=== PATIENT | male | born 1980 | race African-American/Black ===

== ENCOUNTER 2019-01-19 18:07 | Inpatient (IN) | payer MEDICAID ==
[~2019-01-19] VITALS: Ht 172.7 cm; Wt 103.9 kg
[2019-01-19] MEDS ORDERED: FUROSEMIDE20 M1 ORAL (18:16)
[2019-01-19 18:22] VITALS: BP 233/141
--- NOTE | 2019-01-19 18:24 | NUR ---
ED Nurse Note:pt. came with hypertension and SOB from fluid overload, he ran out of lasix, bilateral edema, bp 133/141, ambulatory, A/Ox4, placed on crdiac monitor
[2019-01-19] MEDS ORDERED: Labetalol 5mg/ml 20ml vial IV ONE (18:30)
--- NOTE | 2019-01-19 18:31 | Emergency Room Report ---
History of Present Illness General Chief Complaint: Upper Respiratory Illness Source: Patient Present Illness HPI 38-year-old male history of cardiomyopathy reduced ejection fraction, history of presents with dyspnea, shortness of breath chest pain, worsened while lying flat, alleviated while sitting upright, patient states that he ran out of his Lasix 4 days ago. Severity is moderate, constant, patient denies any fevers chills patient presents for evaluation. Allergies: Coded Allergies: PENICILLINS (Verified Allergy, Severe, Hives, 01/19/19) VERAPAMIL (Verified Allergy, Severe, Hives, 01/19/19) Patient History Past Medical History: see triage record Reviewed Nursing Documentation: PMH: Agreed; PSxH: Agreed Nursing Documentation-PMH Past Medical History: No History, Except For Hx Cardiac Problems: Yes - CHF Hx Hypertension: Yes Hx Diabetes: Yes - CKD Review of Systems All Other Systems: negative except mentioned in HPI Physical Exam Vital Signs Date Time Temp Pulse Resp B/P (MAP) Pulse Ox O2 Delivery O2 Flow Rate FiO2 01/19/19 18:09 98.4 109 20 230/162 (184) 97 Room Air Sp02 EP Interpretation: reviewed, normal General Appearance: well appearing, no apparent distress, alert Head: normocephalic, atraumatic Eyes: bilateral eye PERRL, bilateral eye EOMI ENT: uvula midline, moist mucus membranes Neck: supple, thyroid normal, supple/symm/no masses Respiratory: no respiratory distress, no retraction, no accessory muscle use, crackles Cardiovascular #1: normal peripheral pulses, no gallop, no murmur, tachycardia , edema - 3+ pitting edema Gastrointestinal: non tender, soft, no guarding, no rebound Musculoskeletal: normal inspection Neurologic: alert, oriented x3 Psychiatric: mood/affect normal Skin: no rash, warm/dry Procedures Critical Care Time Critical Care Time Given the critical condition in which the patient arrived, the patient was immediately assessed by myself and the nurse, and cardiac monitoring initiated due to the potential for rapid decompensation of the patient's clinical condition. During the course of the patient's stay, I spent a considerable amount of time at the bedside performing serial re-evaluations of the patient's hemodynamic and clinical status because of the recognized potential threat to life or limb in this condition. I then had a chance to review not only all of the available current laboratory and radiographic studies obtained today, but I also reviewed old records available to me at the time. Additionally, any ancillary information available including sound effects supervisor records were reviewed. Sequential vital signs were obtained. Critical Care time of 31 minutes was performed exclusive of billable procedures. Medical Decision Making Diagnostic Impression: Primary Impression: CHF exacerbation Qualified Codes: I50.9 - Heart failure, unspecified Additional Impression: NSTEMI (non-ST elevated myocardial infarction) ER Course 38-year-old male presents with acute shortness of breath, patient ran out of Lasix, patient shows signs of fluid overload Patient also with blood pressure greater than 220, patient given hydralazine, labetalol, and 40 mg of Lasix IV, patient given aspirin and Lovenox Patient's blood pressure significantly improved to 180s systolic Chest x-ray shows pulmonary edema Will admit patient to telemetry for continued monitoring and diuresis Patient admitted to Dr. Stokes Laboratory Tests Test 01/19/19 18:30 White Blood Count 6.5 K/UL (4.8-10.8) Red Blood Count 4.91 M/UL (4.70-6.10) Hemoglobin 13.5 G/DL (14.2-18.0) L Hematocrit 41.0 % (42.0-52.0) L Mean Corpuscular Volume 83 FL (80-99) Mean Corpuscular Hemoglobin 27.5 PG (27.0-31.0) Mean Corpuscular Hemoglobin Concent 33.0 G/DL (32.0-36.0) Red Cell Distribution Width 12.7 % (11.6-14.8) Platelet Count 227 K/UL (150-450) Mean Platelet Volume 9.1 FL (6.5-10.1) Neutrophils (%) (Auto) 65.9 % (45.0-75.0) Lymphocytes (%) (Auto) 22.6 % (20.0-45.0) Monocytes (%) (Auto) 8.1 % (1.0-10.0) Eosinophils (%) (Auto) 2.4 % (0.0-3.0) Basophils (%) (Auto) 1.1 % (0.0-2.0) Prothrombin Time 10.3 SEC (9.30-11.50) Prothrombin Time INR 1.0 (0.9-1.1) PTT 30 SEC (23-33) Sodium Level 139 MMOL/L (136-145) Potassium Level 4.0 MMOL/L (3.5-5.1) Chloride Level 107 MMOL/L (98-107) Carbon Dioxide Level 26 MMOL/L (21-32) Anion Gap 6 mmol/L (5-15) Blood Urea Nitrogen 16 mg/dL (7-18) Creatinine 2.2 MG/DL (0.55-1.30) H Estimate Glomerular Filtration Rate 33.7 mL/min (>60) Glucose Level 166 MG/DL (74-106) H Calcium Level 8.6 MG/DL (8.5-10.1) Total Bilirubin 0.5 MG/DL (0.2-1.0) Aspartate Amino Transferase (AST) 34 U/L (15-37) Alanine Aminotransferase (ALT) 41 U/L (12-78) Alkaline Phosphatase 116 U/L (46-116) Total Creatine Kinase 123 U/L (26-308) Creatine Kinase MB 2.2 NG/ML (0.0-3.6) Creatine Kinase MB Relative Index 1.7 Troponin I 0.086 ng/mL (0.000-0.056) Pro-B-Type Natriuretic Peptide 7750 pg/mL (0-125) H Total Protein 6.6 G/DL (6.4-8.2) Albumin 2.4 G/DL (3.4-5.0) L Globulin 4.2 g/dL Albumin/Globulin Ratio 0.6 (1.0-2.7) L Lipase 863 U/L (73-393) H EKG Diagnostic Results EKG Time: 18:29 EP Interpretation: Sinus tachycardia, rate 102, QTc 471 left axis deviation no acute st elev ST Segments: other - Flipped T waves in 1 V5 V6, aVL Rhythm Strip Diag. Results Rhythm Strip Time: 19:10 EP Interpretation: yes Rate: 96 Rhythm: NSR, no PVC's, no ectopy Chest X-Ray Diagnostic Results Chest X-Ray Diagnostic Results : Chest X-Ray Ordered: Yes # of Views/Limited/Complete: 1 View Indication: Chest Pain EP Interpretation: Yes Interpretation: other - pulmonary congestion seen Impression: Other - pulmonary congestion seen Electronically Signed by: Josse Louis MD Last Vital Signs Date Time Temp Pulse Resp B/P (MAP) Pulse Ox O2 Delivery O2 Flow Rate FiO2 01/19/19 18:22 105 20 Room Air 01/19/19 18:22 98.4 233/141 97 Disposition: ADMITTED INPATIENT Condition: Stable Josse Louis MD Jan 19, 2019 18:31
[2019-01-19 18:44] LABS: BASOPHILS % (AUTO) 1.1 % (0.0-2.0); EOSINOPHILS % (AUTO) 2.4 % (0.0-3.0); HEMOGLOBIN 13.5 G/DL (14.2-18.0); LYMPHOCYTES % (AUTO) 22.6 % (20.0-45.0); MEAN CORPUSCULAR VOLUME 83 FL (80-99); MONOCYTES % (AUTO) 8.1 % (1.0-10.0); NEUTROPHILS % (AUTO) 65.9 % (45.0-75.0); PLATELET COUNT 227 K/UL (150-450); RED BLOOD COUNT 4.91 M/UL (4.70-6.10); RED CELL DISTRIBUTION WIDTH 12.7 % (11.6-14.8); WHITE BLOOD COUNT 6.5 K/UL (4.8-10.8)
[2019-01-19 18:57] LABS: ANION GAP 6 mmol/L (5-15); BLOOD UREA NITROGEN 16 mg/dL (7-18); CALCIUM 8.6 MG/DL (8.5-10.1); CARBON DIOXIDE 26 MMOL/L (21-32); CHLORIDE 107 MMOL/L (98-107); CREATININE 2.2 MG/DL (0.55-1.30); SODIUM 139 MMOL/L (136-145)
[2019-01-19 19:11] LABS: ALANINE AMINOTRANSFERASE 41 U/L (12-78); ALBUMIN 2.4 G/DL (3.4-5.0); ALBUMIN/GLOBULIN RATIO 0.6 (1.0-2.7); ALKALINE PHOSPHATASE 116 U/L (46-116); ASPARTATE AMINO TRANSFERASE 34 U/L (15-37); BILIRUBIN,TOTAL 0.5 MG/DL (0.2-1.0); CKMB 2.2 NG/ML (0.0-3.6); CREATINE KINASE 123 U/L (26-308)
[2019-01-19] MEDS ORDERED: SPIRONOLACTONE25 MG ORAL (19:16)
[2019-01-19] MEDS ORDERED: ASPIRIN81 MG ORAL (19:16)
[2019-01-19] MEDS ORDERED: ATORVASTATIN CA40 MG ORAL (19:16)
[2019-01-19] MEDS ORDERED: LABETALOL HCL200 MG ORAL (19:16)
[2019-01-19] MEDS ORDERED: LOSARTAN POTASS50 MG ORAL (19:16)
[2019-01-19] MEDS ORDERED: ADALAT20 MG ORAL (19:16)
--- NOTE | 2019-01-19 19:17 | NUR ---
ED Nurse Note:blood sent to labs and IV meds given to pt
[2019-01-19 19:22] VITALS: BP 182/115
--- NOTE | 2019-01-19 19:22 | NUR ---
ED Nurse Note: REceived report from Naomi CARRANZA. Patient alert and oriented, verbally reponsive. Breathing even and unlabored. BP is high MD made aware. Family member at bedside.
[2019-01-19] MEDS ORDERED: Enoxaparin 100mg Inj SUBQ ONE (19:30)
[2019-01-19] MEDS ORDERED: cloNIDine 0.2mg Tab ORAL PRN (20:00)
[2019-01-19] MEDS ORDERED: Zolpidem 5mg tab ORAL PRN (20:00)
[2019-01-19] MEDS ORDERED: Acetaminophen 650 MG SUPP RECTAL PRN (20:00)
[2019-01-19] MEDS ORDERED: Nitroglycerin Subl 0.4mg tab SL PRN (20:00)
[2019-01-19] MEDS ORDERED: Miralax 17gm pkt ORAL PRN (20:00)
--- NOTE | 2019-01-19 20:40 | NUR ---
TRANSFER TO FLOOR: Patient transferred to Tele unit as ordered. Report given to Natalie CARRANZA. alert and oriented, verbally reponsive. Bretahing even and unlabored. BP is high 185/145 MD aware. With IV line on right AC 20g patent and intact. Belongings list done. Belongings taken by the patient. S/O made aware of the transfer.
--- NOTE | 2019-01-19 20:40 | NUR ---
ED Nurse Note: Report given to Junior CARRANZA from Tele.
[2019-01-19 20:41] VITALS: BP 183/145
[2019-01-19 20:50] VITALS: BP 199/127
--- NOTE | 2019-01-19 21:00 | NUR ---
TRANSFER TO FLOOR: Patient transferred to Tele unit as ordered. Report given to Emmanuelle CARRANZA. Alert and oriented, verbally responsive. Breathing even and unlabored. afebrile. Patient is able to ambulate. With IV on left forearm 22g patent and intact. VSS. Medication reconcillation done. Belongings list done. Belongings was given to the patient.
--- NOTE | 2019-01-19 21:11 | NUR ---
NURSE NOTES: Received report from DILLON Jonas. Patient was transferred to Telemetry unit from ER via gurney without incident. No signs of acute distress noted; denies pain at this time. AOX4; able to make needs known. Ambulates independently. Checked IV site; patent and flushed. No erythema, bleeding, or infiltration noted. Patient put on Tele box; sinus rhythm on the monitor. Belongings list checked with patient and transferring RN. $305 noted to be among belongings; will notify nursing supervisor testing to put money in safe per patient's request. Skin assessment performed; no open wounds noted. Skin intact. Bed at lowest position, brakes on, siderails up x2. Call light within reach. Will continue to monitor.
[2019-01-19] MEDS: Carvedilol 6.25mg Tab ORAL SCH (21:35)
[2019-01-19] MEDS: Heparin 5000 units/ml inj SUBQ SCH (21:35)
[2019-01-19] MEDS: Labetalol 200mg tab ORAL SCH (21:36)
[2019-01-19] MEDS: Atorvastatin 80mg tab ORAL SCH (21:37)
[2019-01-19] MEDS: NovoLOG Insulin Flexpen SUBQ SCH (22:15)
[2019-01-20] VITALS: BP 136/76
[2019-01-20] MEDS: HydrALAZINE 50mg tab ORAL SCH ×4 (00:11→17:58)
--- NOTE | 2019-01-20 03:37 | NUR ---
NURSE NOTES: Patient is asleep in semi-mitchell's position. No signs of distress or pain noted at this time. Will continue with plan of care.
[2019-01-20 04:00] VITALS: BP 156/96
[2019-01-20] MEDS: NovoLOG Insulin Flexpen SUBQ SCH ×4 (05:43→21:25)
--- NOTE | 2019-01-20 07:18 | NUR ---
HAND-OFF: Report given to DILLON Gill. Patient asleep, resting comfortably in semi-mitchell's position. Patient is in stable condition.
--- NOTE | 2019-01-20 07:20 | NUR ---
NURSE NOTES: Received bedside report from Natalie CARRANZA. Pt. up sitting at the edge of the bed. A/O x 4. No sign of distress. Denies pain at present. IV at left AC #20g. in placed SL. Bed in low position, locked. Call light within reach. Will cont. to monitor.
[2019-01-20 07:25] LABS: BASOPHILS % (AUTO) 0.7 % (0.0-2.0); EOSINOPHILS % (AUTO) 3.3 % (0.0-3.0); HEMATOCRIT 42.1 % (42.0-52.0); LYMPHOCYTES % (AUTO) 20.5 % (20.0-45.0); MEAN CORPUSCULAR VOLUME 81 FL (80-99); MONOCYTES % (AUTO) 6.3 % (1.0-10.0); NEUTROPHILS % (AUTO) 69.3 % (45.0-75.0); PLATELET COUNT 242 K/UL (150-450); RED BLOOD COUNT 5.21 M/UL (4.70-6.10); RED CELL DISTRIBUTION WIDTH 13.1 % (11.6-14.8); WHITE BLOOD COUNT 7.1 K/UL (4.8-10.8)
[2019-01-20 08:00] VITALS: BP 142/90
[2019-01-20 08:55] LABS: CREATINE KINASE 101 U/L (26-308)
[2019-01-20] MEDS: Aspirin Baby 81mg ORAL SCH (08:57)
[2019-01-20 08:58] LABS: ALANINE AMINOTRANSFERASE 38 U/L (12-78); ALBUMIN 2.4 G/DL (3.4-5.0); ALBUMIN/GLOBULIN RATIO 0.6 (1.0-2.7); ALKALINE PHOSPHATASE 104 U/L (46-116); ANION GAP 8 mmol/L (5-15); ASPARTATE AMINO TRANSFERASE 23 U/L (15-37); BILIRUBIN,TOTAL 0.5 MG/DL (0.2-1.0); BLOOD UREA NITROGEN 16 mg/dL (7-18); CARBON DIOXIDE 26 MMOL/L (21-32); CHLORIDE 104 MMOL/L (98-107); CHOLESTEROL 268 MG/DL (< 200); CKMB 2.3 NG/ML (0.0-3.6); CREATININE 2.1 MG/DL (0.55-1.30); HDL CHOLESTEROL 49 MG/DL (40-60); POTASSIUM 3.2 MMOL/L (3.5-5.1); SODIUM 138 MMOL/L (136-145); TRIGLYCERIDES 124 MG/DL (30-150)
[2019-01-20] MEDS: Labetalol 200mg tab ORAL SCH ×2 (08:58→21:22)
[2019-01-20] MEDS: Losartan 50mg tab ORAL SCH (08:58)
[2019-01-20] MEDS: Carvedilol 6.25mg Tab ORAL SCH ×2 (08:59→21:20)
[2019-01-20] MEDS: Spironolactone 25mg tab ORAL SCH (08:59)
[2019-01-20] MEDS: Heparin 5000 units/ml inj SUBQ SCH ×2 (09:00→21:26)
[2019-01-20 09:51] LABS: CALCIUM 8.7 MG/DL (8.5-10.1)
--- NOTE | 2019-01-20 10:59 | Diagnostic Imaging Report ---
Indication: Dyspnea Comparison: None A single view chest radiograph was obtained. Findings: The left costophrenic angle is slightly obscured and may be blunted. The cardiac mediastinal silhouette is normal. Pulmonary vascularity is within normal limits. Bones are unremarkable. IMPRESSION: Small left pleural effusion may be present. Negative exam otherwise.
[2019-01-20 12:00] VITALS: BP 121/81
[2019-01-20 16:00] VITALS: BP 124/76
--- NOTE | 2019-01-20 16:23 | NUR ---
CASE MANAGEMENT:REVIEW 38 YR OLD MALE PRESENTED TO ER CC: SOB, CHEST PRESSURE AND HEADACHE SI: CHF EXACERBATION. NSTEMI 98.4 109 20 230/162 97% ON RA CR+2.2 TROPONIN(+) 0.086 BNP+7750 IS: IV LASIX ASA PO IV LABETALOL IV HYDRALAZINE LOVENOX SQ : TO TELEMETRY IS: COZAAR PO QD ASA PO COREG PO Q12 IV LASIX Q8HRS PROCARDIA XL PO QD INTERQUAL CRITERIA MET
--- NOTE | 2019-01-20 16:35 | NUR ---
*-* INSURANCE *-* ALL CLINICALS AND REVIEWS HAVE BEEN FAXED TO: Tom [facility] No tracking # or adult protective caseworker assigned yet #[phone]
[2019-01-20] MEDS: Nateglinide 60mg tab ORAL SCH (17:57)
--- NOTE | 2019-01-20 18:30 | Cardiology Report ---
APPROVED REPORT EXAM: Two-dimensional and M-mode echocardiogram with Doppler and color Doppler. INDICATION Congestive Heart Failure M-Mode DIMENSIONS IVSd1.6 (0.7-1.1cm)Left Atrium (MM)3.5 (1.6-4.0cm) LVDd4.2 (3.5-5.6cm)Aortic Root2.5 (2.0-3.7cm) PWd1.9 (0.7-1.1cm)Aortic Cusp Exc.1.9 (1.5-2.0cm) LVDs3.0 (2.5-4.0cm) PWs2.0 cm Normal left ventricular chamber size, systolic function and wall motion. Left ventricular ejection fraction estimated to be 55-60%. Moderate left ventricular hypertrophy. Mild left atrial enlargement. Right cardiac chamber sizes are within normal limits. Focal aortic valve sclerosis with adequate cusp excursion. Thickened mitral valve leaflets with normal excursion. Mitral annulus and aortic root calcification. Normal pulmonic valve structure. Normal tricuspid valve structure. IVC dilated at 2.3 cm with slight physiologic collapse, suggestive of increased RA pressure. A color flow and spectral Doppler study was performed and revealed: Mild mitral regurgitation. Mitral diastolic velocities suggest pseudo-normal LV physiology c/w moderate left ventricular diastolic dysfunction (grade II). Trace tricuspid regurgitation. Tricuspid systolic velocities suggests peak right ventricular systolic pressure of 23mmHg. Trace pulmonic regurgitation present.
--- NOTE | 2019-01-20 18:32 | Cardiology Report ---
APPROVED REPORT EKG Measurement Heart [id number] UT 160P57 [id number] Normal sinus rhythm Possible Left atrial enlargement Prolonged QT Abnormal ECG
--- NOTE | 2019-01-20 18:35 | Cardiology Report ---
APPROVED REPORT EKG Measurement Heart [id number] ND 148P61 [id number] Sinus tachycardia Possible Left atrial enlargement Left axis deviation Possible Anterior infarct, age undetermined Abnormal ECG
--- NOTE | 2019-01-20 19:38 | NUR ---
HAND-OFF: Report given to Flor RN. Pt. remain stable.
--- NOTE | 2019-01-20 19:45 | NUR ---
NURSE NOTES: Received pt and report from DILLON Gill. Observed pt resting in bed with both eyes open and watching television. Pt is A/Ox4. cardiac monitor is in placed, IV site intact, asymptomatic and patent. Bed is in the lowest position and locked. Call light within reach. No signs/symptoms of acute distress noted at this time. Will continue plan of care.
[2019-01-20 20:00] VITALS: BP 124/79
[2019-01-20] MEDS ORDERED: NovoLOG Insulin Flexpen SUBQ SCH (21:00)
[2019-01-20] MEDS: Atorvastatin 80mg tab ORAL SCH (21:20)
[2019-01-21] VITALS: BP 129/83
--- NOTE | 2019-01-21 00:30 | History and Physical Report ---
DATE OF ADMISSION: 01/19/2019 CHIEF COMPLAINT AND REASON FOR HOSPITALIZATION: The patient is admitted with CHF and pulmonary edema. HISTORY OF PRESENT ILLNESS: The patient moved back to [facility] from [place] recently and ran out of his furosemide presented to the emergency room for respiratory distress and pulmonary edema. He has a prior history of congestive heart failure and severe hypertension since his early 20s as well as adult onset diabetes. The patient is not known to have any coronary disease. He is not complaining of chest pain. Shortness of breath is starting to improve. He does have some awareness of chronic kidney disease. HOME MEDICATIONS: Atorvastatin 80 mg daily, labetalol 200 mg b.i.d., aspirin 81 mg daily, losartan 100 mg daily, nifedipine 90 mg daily, furosemide 40 mg daily, Aldactone 25 mg daily, and potassium 1 pill daily uncertain dose. ALLERGIES: Penicillin and verapamil. HABITS: He smokes intermittently in the past, but not regularly. Alcohol and social drugs, none. SOCIAL HISTORY: He just moved back to [place]. He is currently unemployed. FAMILY HISTORY: Positive for diabetes and hypertension. SYSTEM REVIEW: HEENT: Vision is corrected by eye glasses. Hearing is good. ENDOCRINE: Diabetes as above. No known thyroid disease. PULMONARY: No asthma or TB. CARDIAC: See history of present illness. GASTROINTESTINAL: No GI bleeding or ulcers. No abdominal pain. GENITOURINARY: No dysuria, hematuria, or kidney stones. NEUROLOGIC: No CVA, syncope, or seizures. PHYSICAL EXAMINATION: VITAL SIGNS: Temperature 97.4, pulse 77, respirations 20, blood pressure 121/81, and pulse ox 97. Earlier, his blood pressure was as high as 233/141 in the emergency room. HEENT: Sclerae are nonicteric. There is no periorbital edema. Oral mucosa moist. NECK: No adenopathy or thyroid enlargement. LUNGS: Clear. HEART: Regular rhythm. I hear no murmur. ABDOMEN: Soft without organomegaly or masses. EXTREMITIES: Show 2+ to 3+ edema. NEUROLOGIC: He is alert and oriented. Cranial nerves are intact. PERTINENT LABORATORY DATA: On admission, BUN 16 and creatinine 2.2. BNP 7750. Troponin 0.086 and repeat 0.091. Potassium 4, repeat 3.2. IMPRESSION: 1. Congestive heart failure, acute on chronic, likely combined systolic and diastolic. 2. Adult onset diabetes. 3. Severe hypertension, on multiple medications. 4. Hyperlipidemia. 5. Borderline troponin. PLAN: The patient will be diuresed. Monitor electrolytes and diabetes. Start him on oral agents for diabetes. Monitor sugars and we will watch his response to the above measures. Johann Stokes M.D. DR: SUMMER JOB#: [id number] CC:
--- NOTE | 2019-01-21 00:45 | Progress Note ---
DATE: 01/20/2019 CARDIOLOGY PROGRESS NOTE SUBJECTIVE: The patient is still short of breath with orthopnea. He has diuresed somewhat overnight. His blood pressure controls have improved. PHYSICAL EXAMINATION: VITAL SIGNS: Blood pressure 142/90, pulse 90, respirations 18. NECK: Jugular venous pressure elevated. LUNGS: Bilateral rales. CARDIAC: Regular rhythm and rate. Normal S1, S2 with a fourth heart sound. EXTREMITIES: With 2+ dependent edema. LABORATORY DATA: BUN 16, creatinine 2.1, potassium 3.2. Troponin 0.091. IMPRESSION: 1. Hypertensive urgency, resolved. 2. Hypertensive heart disease with labile blood pressure. 3. Acute myocardial ischemia and possible non-ST elevation infarction. 4. Acute on chronic diastolic congestive heart failure. 5. Hyperlipidemia. PLAN: 1. Continue diuresis. 2. Continue titration of anti-failure regimen. 3. Continue monitoring of renal parameters. 4. Review echocardiogram. 5. Consider anti-lipid therapy. 6. Maintain anti-platelet therapy. 7. Potassium replacement. 8. Check magnesium. Calderon Manrique M.D. DR: MICHAEL JOB#: [id number] CC:
[2019-01-21] MEDS: HydrALAZINE 50mg tab ORAL SCH ×4 (00:52→17:08)
--- NOTE | 2019-01-21 01:15 | Consultation ---
DATE OF CONSULTATION: 01/19/2019 CARDIOLOGY CONSULTATION CONSULTING PHYSICIAN: Calderon Manrique M.D. REFERRING PHYSICIAN: Johann Stokes M.D. REASON FOR CONSULTATION: Congestive heart failure. HISTORY OF PRESENT ILLNESS: The patient was seen in the emergency room. Case was discussed with the emergency room physician. This is a 38-year-old male. He has a known history of cardiomyopathy. He has shortness of breath and chest pain for the past few days and inability to lie flat. He states that he has ran out of medications. He has been recently traveling back and forth to [facility] where he had been residing. PAST MEDICAL HISTORY: Hypertensive heart disease, history of congestive heart failure, and chronic kidney disease. ALLERGIES: Verapamil and penicillin. FAMILY HISTORY: Noncontributory. SOCIAL HISTORY: Negative for smoking, alcohol, or substance abuse. REVIEW OF SYSTEMS: Otherwise unremarkable. PHYSICAL EXAMINATION: VITAL SIGNS: Blood pressure in the emergency room 230/162, heart rate 109, and respiratory rate 20. Afebrile. NECK: Jugular venous pressure elevated. LUNGS: With bilateral rales. CARDIAC: Regular rhythm and rate. Normal S1, S2 with a fourth heart sound. ABDOMEN: Soft and nontender. EXTREMITIES: With 2 to 3+ dependent edema. LABORATORY DATA: White count 6.5, hemoglobin 13.5. Potassium 4, BUN 16, and creatinine 2.2. Troponin 0.086. Pro-natriuretic peptide 7750. Albumin 2.4. IMPRESSION: 1. Hypertensive urgency. 2. Acute myocardial ischemia. 3. Acute on chronic diastolic and possibly systolic congestive heart failure. 4. Chronic kidney disease with possible acute exacerbation. 5. Possible geo-HE-fjqioiewj myocardial infarction. 6. Medication noncompliance. 7. Moderate to severe protein-calorie malnutrition. PLAN: 1. Resume antihypertensives and titrate for optimal control. 2. Diuresis with intravenous loop diuretic. 3. Cardiac monitoring. 4. Serial troponin. 5. Consider 24-hour urine collection and assist with medical followup issues following discharge so medications can be obtained regularly as an outpatient. Calderon Manrique M.D. DR: LAUREN JOB#: [id number] CC:
[2019-01-21 04:00] VITALS: BP 129/95
[2019-01-21 06:49] LABS: ANION GAP 9 mmol/L (5-15); BLOOD UREA NITROGEN 23 mg/dL (7-18); CALCIUM 8.7 MG/DL (8.5-10.1); CARBON DIOXIDE 25 MMOL/L (21-32); CHLORIDE 104 MMOL/L (98-107); CREATININE 2.4 MG/DL (0.55-1.30); POTASSIUM 3.8 MMOL/L (3.5-5.1); SODIUM 138 MMOL/L (136-145)
[2019-01-21] MEDS: NovoLOG Insulin Flexpen SUBQ SCH ×3 (06:49→17:11)
[2019-01-21] MEDS: Nateglinide 60mg tab ORAL SCH ×3 (06:50→17:08)
[2019-01-21 08:00] VITALS: BP 134/92
--- NOTE | 2019-01-21 08:06 | NUR ---
HAND-OFF: Report given to DILLON Booker.
--- NOTE | 2019-01-21 08:07 | NUR ---
NURSE NOTES: Received patient and report from Flor RN. sitting at the edge of the bed. A/O x 4. Denies any pain at this time. No sign of acute distress noted. IV is intact and patent SL. Bed is in lowest position. Brakes engaged for safety. Call light is within reach. Will continue with the plan of care.
[2019-01-21] MEDS: Carvedilol 6.25mg Tab ORAL SCH (09:09)
[2019-01-21] MEDS: Labetalol 200mg tab ORAL SCH (09:10)
[2019-01-21] MEDS: Aspirin Baby 81mg ORAL SCH (09:10)
[2019-01-21] MEDS: Losartan 50mg tab ORAL SCH (09:10)
[2019-01-21] MEDS: Spironolactone 25mg tab ORAL SCH (09:12)
[2019-01-21] MEDS: Heparin 5000 units/ml inj SUBQ SCH (09:14)
--- NOTE | 2019-01-21 10:21 | NUR ---
RD ASSESSMENT & RECOMMENDATIONS SEE CARE ACTIVITY FOR COMPLETE ASSESSMENT DAILY ESTIMATED NEEDS: Needs based on DM, cardiac, obese 78kg abw 20-25 kcals/kg 2115-9368 total kcals 1-1.5 g protein/kg 78-117 g total protein Fluid per MD, on lasix NUTRITION DIAGNOSIS: Decrease fat and sodium needs related to CHF, HTN, Hyperlipidemia as evidenced by pt w/ elev BNP (>7000), elev BP on adm (230/162), and elev cholesterol (268), w/ elev LDL, pt is obese per guidelines. CURRENT DIET: CCHO HIGH/ MAXI PO DIET RECOMMENDATIONS: CARDIAC/ CCHO LOW DIET ADDITIONAL RECOMMENDATIONS: 1) Obtain daily STANDING WEIGHTS on lasix therapy 2) Rec diet change as above 3) B-complex daily w/ lasix 4) Provided pt w/ extensive diet edu re: DM, Low NA, Low Fat
[2019-01-21 12:00] VITALS: BP 145/96
--- NOTE | 2019-01-21 13:02 | NUR ---
*-* INSURANCE *-* UPDATED CLINICALS AND REVIEWS HAVE BEEN FAXED TO: Tom [facility] No tracking # or mental health case manager assigned yet #[phone]
[2019-01-21] MEDS ORDERED: FUROSEMIDE40 MG ORAL (13:26)
[2019-01-21] MEDS ORDERED: STARLIX60 MG ORAL (13:26)
[2019-01-21 16:00] VITALS: BP 124/78
[2019-01-21 17:08] VITALS: BP 124/78
--- NOTE | 2019-01-21 18:31 | NUR ---
NURSE NOTES: Patient is discharged home via private vehicle by his mother. Patient is in stable condition. IV removed, no bleeding, no infiltration noted. bus driver/monitor removed. Belongings list checked and with patient. Patients belonging in the hospital safe was given to patient by the nursing supervisor rolling room and security staff. Prescription given to patient by Dr. Stokes. Medication teaching done and patient stated understanding.
--- NOTE | 2019-01-21 20:00 | Discharge Summary ---
DATE OF ADMISSION: 01/19/2019 DATE OF DISCHARGE: 01/21/2019 PERTINENT HISTORY: The patient admitted with CHF, pulmonary edema, respiratory failure. PERTINENT PHYSICAL FINDINGS: GENERAL: He is initially placed on BiPAP, diuresed on my exam. LUNGS: Clear. HEART: Regular rhythm. EXTREMITIES: Show 2 to 3+ edema. COURSE IN THE HOSPITAL: The patient was diuresed. Electrolytes were corrected. He was diabetic and started on Starlix for diabetes. His cardiac medications were adjusted. He is seen by Dr. Calderon Manrique. On the day of discharge, his lungs were clear and he was not short of breath. No chest pain. Heart, regular rhythm. Abdomen, soft. Extremities showed 2+ edema. He felt much better. He was given instructions and discharged home. FINAL DIAGNOSES: 1. Congestive heart failure, acute on chronic, likely combined systolic and diastolic. 2. Adult-onset diabetes with hyperglycemia. 3. Pulmonary edema. 4. Severe hypertension, on multiple medications. 5. Hyperlipidemia. 6. Borderline troponin with no clinical ischemia. DISCHARGE DISPOSITION: Home, on a low-salt diabetic diet. DISCHARGE MEDICATIONS: Medications per the discharge medication list. DISCHARGE FOLLOWUP: Follow up by his primary care physician. Johann Stokes M.D. DR: ANAYELI JOB#: [id number] CC:
--- NOTE | 2019-01-22 00:45 | Progress Note ---
DATE: 01/21/2019 CARDIOLOGY PROGRESS NOTE SUBJECTIVE: The patient is tolerating his medications. Much less shortness of breath and decreasing edema. OBJECTIVE: VITAL SIGNS: Blood pressure control is improved 134/92, pulse rate 83, respirations 18. LUNGS: With few rales. CARDIAC: Regular rhythm and rate. Normal S1 and S2 with a fourth heart sound. ABDOMEN: Soft. EXTREMITIES: With 1+ edema. IMPRESSION: Significantly improved with resumption of usual medications. PLAN: 1. Transition from IV to oral diuretics. 2. Continue and antihypertensives. 3. Stress outpatient compliance. 4. Confirm availability of the medications with an outpatient discharge planning. Calderon Manrique M.D. DR: SONAM JOB#: [id number] CC:
--- NOTE | 2019-01-22 16:33 | NUR ---
*-* INSURANCE *-* DISCHARGE SUMMARY BEEN FAXED TO: Tom Jhaveri [facility] No tracking # or community case manager assigned yet #[phone]
== END 2019-01-21 18:35 | disposition home or self-care (01) | DRG 194 ==
LOC: EMR 18:25 → EDBEDREQ 20:19 → 2E 20:29
DX: I13.0 Hypertensive heart and chronic kidney disease with heart failure and stage 1 through stage 4 chronic kidney disease, or unspecified chronic kidney disease (principal); I50.43 Acute on chronic combined systolic (congestive) and diastolic (congestive) heart failure; I16.0 Hypertensive urgency; E43 Unspecified severe protein-calorie malnutrition; Z68.34 Body mass index [BMI] 34.0-34.9, adult; E11.65 Type 2 diabetes mellitus with hyperglycemia; E78.5 Hyperlipidemia, unspecified; E11.22 Type 2 diabetes mellitus with diabetic chronic kidney disease; N18.9 Chronic kidney disease, unspecified; Z91.14 Patient's other noncompliance with medication regimen; Z88.0 Allergy status to penicillin; Z88.8 Allergy status to other drugs, medicaments and biological substances
CPT/HCPCS: 36415; 71045; 80048; 80053; 80061; 82550; 82553; 82962; 83690; 83880; 84443; 84484; 85025; 85610; 85730; 93005; 93306; 96372; 96374; 96375; 99291; J1815; J8499